=== PATIENT | female | born 1940 | race Caucasian/White ===

== ENCOUNTER 2016-11-04 10:15 | Emergency (ER) | payer MEDICARE ==
[2016-11-04 11:22] VITALS: BP 153/75
--- NOTE | 2016-11-04 12:11 | UC ---
anabel Ocasio Timothy, scribed for Morales Zamudio MD on 11/04/16 at 1129 . Ear Complaint HPI - HPI Summary HPI Summary: Lulu Slaughter is a 76 yo female presenting to [facility] with 8/10 pain in her left ear and behind her left ear for the past week. Pt was seen on 11/01/16 in [place] and was Dx with sinusitis and given neomycin, polymxin, hydrocortisone ear drops for use TID with no relief. She denies any drainage from her ear, or any rhinorrhea. She notes some sinus tenderness. Her MHx includes thyroid disease, goiter removal, rheumatic fever as a child, HLD, HTN, tubal ligation, shingles, tobacco use. - History of Current Complaint Chief Complaint: UCEar Stated Complaint: EAR PAIN Time Seen by Provider: 11/04/16 11:27 Hx Obtained From: Patient Onset/Duration: Sudden Onset, Lasting Days, Still Present Severity Initially: Moderate Severity Currently: Moderate Pain Intensity: 8 Pain Scale Used: 0-10 Numeric - Allergies/Home Medications Allergies/Adverse Reactions: Allergies Allergy/AdvReac Type Severity Reaction Status Date / Time Penicillins Allergy Severe swelling/it Verified 02/21/16 07:48 martín Home Medications: Home Medications Neomycin, Polymyxin B Hydrocortisone 3 drop LEFT EAR TID 11/04/16 [History Confirmed 11/04/16] PMH/Surg Hx/FS Hx/Imm Hx Endocrine History: Thyroid Disease Cardiovascular History: Hypertension - Surgical History Surgical History: Yes Surgery Procedure, Year, and Place: TUBAL. THYROID - Family History Known Family History: Positive: Hypertension Negative: Cardiac Disease, Diabetes - Social History Alcohol Use: None Substance Use Type: None Smoking Status (MU): Current Every Day Smoker Type: Cigarettes Amount Used/How Often: 1/2 ppd Have You Smoked in the Last Year: Yes When Did the Patient Quit Smoking/Using Tobacco: < 1/2 ppd Household Exposure Type: Cigarettes - Immunization History Most Recent Influenza Vaccination: 12/18 Review of Systems Constitutional: Negative Skin: Negative Eyes: Negative ENT: Ear Ache, Sinus Pain/Tenderness Respiratory: Negative Cardiovascular: Negative Gastrointestinal: Negative Genitourinary: Negative Motor: Negative Neurovascular: Negative Musculoskeletal: Negative Neurological: Negative Psychological: Negative All Other Systems Reviewed And Are Negative: Yes Physical Exam Triage Information Reviewed: Yes Vital Signs: Initial Vital Signs Temp 97.7 F 11/04/16 11:10 Pulse 62 11/04/16 11:10 Resp 18 11/04/16 11:10 BP 153/75 11/04/16 11:10 Pulse Ox 97 11/04/16 11:10 Vital Signs Reviewed: Yes - Additional Comments The patient is well-nourished in no acute distress and in no acute pain. The skin is warm and dry and skin color reflects adequate perfusion. HEENT: The head is normocephalic and atraumatic. The pupils are equal and reactive. The conjunctivae are clear and without drainage. Nares are patent and without drainage. No rhinorrhea, no postnasal drip. Mouth reveals moist mucous membranes and the throat is without erythema and exudate. The external ears are intact. The ear canals are patent and without drainage. The tympanic membranes are intact. The right ear has no mastoid tenderness. The left ear has tragal tenderness and mastoid tenderness with palpation. The left TM is dull with mild effusion. There is some left maxillary sinus tenderness. Neck is supple with full range of motion and non-tender. There are no carotid bruits. There is no neck vein distension. Respiratory: Chest is non-tender. Lungs are clear to auscultation and breath sounds are symmetrical and equal. Cardiovascular: Heart is regular rate and rhythm. There is no murmur or rub auscultated. There is no peripheral edema and pulses are symmetrical and equal. Abdomen: The abdomen is soft and non-tender. There are normal bowel sounds heard in all four quadrants and there is no organomegaly palpated. Musculoskeletal: There is no back pain noted. Extremities are non-tender with full range of motion. There is good capillary refill. There is no peripheral edema or calf tenderness elicited. Neurological: Patient is alert and oriented to person, place and time. The patient has symmetrical motor strength in all four extremities. Cranial nerves are grossly intact. Deep tendon reflexes are symmetrical and equal in all four extremities. Psychiatric: The patient has an appropriate affect and does not exhibit any anxiety or depression. Ear Complaint Course/Dx - Course Course Of Treatment: Lulu Slaughter is a 76 yo female presenting to [facility] with 8/ 10 pain in her left ear and behind her left ear for the past week. Pt medication list reviewed this visit. After clinical examination, she will be discharged home with otitis media and mastoiditis, with appropriate instructions and follow up. - Differential Dx/Diagnosis Differential Diagnosis/HQI/PQRI: Otitis Externa, Otitis Media, Other - sinusitis , mastioditis Provider Diagnoses: otitis media, mastoiditis Discharge - Discharge Plan Condition: Stable Disposition: HOME Prescriptions: Levofloxacin TAB* [Levaquin TAB*] 750 mg PO DAILY #10 tab Patient Education Materials: Otitis Media (ED), Mastoiditis (ED) Referrals: Iraida Sun NP [Primary Care Provider] - 2 Days Fredis Muñoz MD [Medical Doctor] - 2 Days Additional Instructions: Please follow up with your primary care physician and the ENT Doctor provided ( Dr. Muñoz) regarding your visit to urgent care today. Return to urgent care or the emergency department with any new or recurring symptoms. The documentation as recorded by the anabel fritz Timothy accurately reflects the service I personally performed and the decisions made by , Morales Zamudio MD.
== END 2016-11-04 12:00 | disposition home or self-care (01) ==
LOC: UCEAST 10:15
DX: H66.92 Otitis media, unspecified, left ear (principal); H70.92 Unspecified mastoiditis, left ear; I10 Essential (primary) hypertension; E78.5 Hyperlipidemia, unspecified; B02.9 Zoster without complications; Z72.0 Tobacco use; E07.9 Disorder of thyroid, unspecified
CPT/HCPCS: 99212; G0463

== ENCOUNTER 2016-11-08 10:49 | Emergency (ER) | payer MEDICARE ==
--- NOTE | 2016-11-08 12:18 | ED ---
Throat Pain/Nasal Congestion - HPI Summary HPI Summary: Patient presents with left post auricular tenderness x2 weeks. She has been seen at twice and given abx levofloxacin which she has been on for 5 days without improvement. Slight redness over the area, which has dissipated, but now notes to severe tenderness. She is unable to touch the area. Denies visual disturbances, ROYAL, eye discharge, inner ear pain or other complaints. PMHx includes CKD. Denies other complaints at this time. Denies SOB, chest pain, sweats, chills, fever or aches. Denies tinnitis or hearing loss. - History of Current Complaint Chief Complaint: EDEarPain Time Seen by Provider: 11/08/16 11:14 Hx Obtained From: Patient Onset/Duration: Gradual Onset Severity: Severe Associated Signs And Symptoms: Positive: Negative - Epiglottits Risk Factors Epiglottis Risk Factors: Negative - Allergies/Home Medications Allergies/Adverse Reactions: Allergies Allergy/AdvReac Type Severity Reaction Status Date / Time Penicillins Allergy Severe swelling/it Verified 11/08/16 10:53 martín PMH/Surg Hx/FS Hx/Imm Hx Previously Healthy: No - see below Endocrine/Hematology History: Reports: Hx Thyroid Disease - Goiter remvoed in past Denies: Hx Diabetes Cardiovascular History: Reports: Hx Hypercholesterolemia, Hx Hypertension, Hx Rheumatic Fever - as a child Denies: Hx Congestive Heart Failure, Hx Peripheral Vascular Disease Respiratory History: Denies: Hx Asthma, Hx Chronic Obstructive Pulmonary Disease (COPD) GI History: Denies: Hx Ulcer, Other GI Disorders History: Denies: Hx Renal Disease, Other Problems/Disorders Musculoskeletal History: Denies: Hx Arthritis, Hx Osteoporosis Sensory History: Denies: Hx Cataracts, Hx Contacts or Glasses, Hx Glaucoma, Hx Hearing Aid Opthamlomology History: Denies: Hx Cataracts, Hx Contacts or Glasses, Hx Glaucoma Neurological History: Denies: Hx Headaches, Hx Seizures, Hx Transient Ischemic Attacks (TIA) Psychiatric History: Denies: Hx Anxiety, Hx Depression - Cancer History Hx Chemotherapy: No Hx Radiation Therapy: No - Surgical History Surgery Procedure, Year, and Place: TUBAL. THYROID Hx Anesthesia Reactions: No - Immunization History Date of Tetanus Vaccine: Unk Date of Influenza Vaccine: Fall 2011 Hx Pertussis Vaccination: No Immunizations Up to Date: Unable to Obtain/Confirm Infectious Disease History: No Infectious Disease History: Reports: Hx Shingles - Many years ago Denies: Hx Clostridium Difficile, Hx Hepatitis, Hx Human Immunodeficiency Virus (HIV), Hx of Known/Suspected MRSA, Hx Tuberculosis, Hx Known/Suspected VRE , Hx Known/Suspected VRSA, History Other Infectious Disease, Traveled Outside the [place] in Last 30 Days - Family History Known Family History: Positive: None, Hypertension Negative: Cardiac Disease, Diabetes - Social History Occupation: Unemployed Lives: With Family Alcohol Use: None Hx Substance Use: No Substance Use Type: Reports: None Hx Tobacco Use: Yes Smoking Status (MU): Current Every Day Smoker Type: Cigarettes Amount Used/How Often: 1/2 ppd Have You Smoked in the Last Year: Yes Review of Systems Constitutional: Negative Eyes: Negative Positive: Ear Ache - post auricular pain on left side Cardiovascular: Negative Respiratory: Negative Positive: no symptoms reported, see HPI Musculoskeletal: Negative Neurological: Negative Psychological: Normal All Other Systems Reviewed And Are Negative: Yes Physical Exam Triage Information Reviewed: Yes Vital Signs On Initial Exam: Initial Vitals Temp Pulse Resp BP Pulse Ox 97.8 F 81 16 159/87 97 11/08/16 10:53 11/08/16 10:53 11/08/16 10:53 11/08/16 10:53 11/08/16 10:53 Vital Signs Reviewed: Yes Appearance: Positive: Well-Appearing, Well-Nourished Skin: Positive: Warm, Skin Color Reflects Adequate Perfusion Head/Face: Positive: Normal Head/Face Inspection Eyes: Positive: EOMI, TRISTAN ENT: Positive: Other - post auricular pain on left side Neck: Positive: Supple, Nontender Respiratory/Lung Sounds: Positive: Clear to Auscultation, Breath Sounds Present Cardiovascular: Positive: Normal, RRR, Pulses are Symmetrical in both Upper and Lower Extremities Musculoskeletal: Positive: Normal, Strength/ROM Intact Neurological: Positive: Normal, Sensory/Motor Intact Psychiatric: Positive: Normal AVPU Assessment: Alert Diagnostics - Vital Signs Vital Signs Temp Pulse Resp BP Pulse Ox 11/08/16 11:39 97.8 F 81 16 159/87 97 11/08/16 10:53 97.8 F 81 16 159/87 97 - Laboratory Lab Statement: Any lab studies that have been ordered have been reviewed, and results considered in the medical decision making process. EENT Course/Dx - Course Course Of Treatment: post auricular pain on left side. Called Dr. Clancy who recommends US for possible abscess and follow up with mammogram as outpatient. Tenderness to the left post auricular area without fever, sweats or chills. NO erythema or bulging. meningeal signs, cranial nerve deficits, focal neurologic findings, altered level of consciousness. No postauricular mass, neck mass, cranial nerve deficits, retro-orbital pain, hearing loss, tinnitus, vertigo, nystagmus. US shows no acute findings. Patient is given pain medications. She is to follow up for a mammogram this month and follow up with PCP. She does not currently have a PCP and is given a list. She agrees to follow up. - Differential Diagnoses Differential Diagnoses: Other - mastoiditis, abscess, ear infection, lymphnode pain - Diagnoses Provider Diagnoses: Pain of left mastoid Discharge - Discharge Plan Condition: Stable Disposition: HOME Prescriptions: HYDROcodone/ACETAMIN 5-325 MG* [[place] 5-325 TAB*] 1 tab PO Q4H PRN #18 tab MDD 6 PRN Reason: Pain Referrals: [facility] [Provider Group] [facility] [Provider Group] No Primary Care Phys,NOPCP [Primary Care Provider] - Additional Instructions: Follow up with PCP Call to make an appt for mammogram Continue antibiotics as prescribed Take ibuprofen 600mg three times daily Pain medication as needed
[2016-11-08] MEDS ORDERED: HYDROcodone/ACETAMIN 5-325 MG* 1 TAB PO ONE (12:38)
--- NOTE | 2016-11-08 13:34 | RAD ---
INDICATION: Left posterior auricular pain, abscess. COMPARISON: There are no prior studies available for comparison. TECHNIQUE: Multiple real-time images of the left posterior auricular region were obtained with images of the right side for comparison were obtained. FINDINGS: No mass, fluid collection or abscess is seen. IMPRESSION: NO EVIDENCE FOR ABSCESS.
[2016-11-08 14:40] VITALS: BP 143/79
== END 2016-11-08 14:39 | disposition home or self-care (01) ==
LOC: ED 10:49
DX: H92.02 Otalgia, left ear (principal)
CPT/HCPCS: 76536; 99282

== ENCOUNTER 2017-05-07 16:19 | Emergency (ER) | payer MEDICARE ==
--- NOTE | 2017-05-07 18:41 | UC ---
Shoulder Pain HPI - HPI Summary HPI Summary: 76 yo female fell and struck right shoulder on wood stove about a month ago ROM improving since injury but still hurts She has significant pain with lifting Hurts to bowl she is right handed - History of Current Complaint Chief Complaint: UCUpperExtremity Stated Complaint: SHOULDER INJURY Time Seen by Provider: 05/07/17 18:31 Hx Obtained From: Patient Onset/Duration: Sudden Onset Timing: Constant Severity Initially: Severe Severity Currently: Moderate Pain Intensity: 5 Pain Scale Used: 0-10 Numeric Character: Dull, Aching Aggravating Factor(s): Movement, Lifting Alleviating Factor(s): Rest Associated Signs And Symptoms: Positive: Negative - Allergies/Home Medications Allergies/Adverse Reactions: Allergies Allergy/AdvReac Type Severity Reaction Status Date / Time MS Penicillins [Penicillins] Allergy Severe swelling/it Verified 05/07/17 17:04 martín PMH/Surg Hx/FS Hx/Imm Hx Previously Healthy: Yes Endocrine History: Dyslipidemia - Surgical History Surgical History: Yes Surgery Procedure, Year, and Place: TUBAL. THYROID - Family History Known Family History: Positive: None, Hypertension Negative: Cardiac Disease, Diabetes - Social History Alcohol Use: None Substance Use Type: None Smoking Status (MU): Current Every Day Smoker Type: Cigarettes Amount Used/How Often: 1/2 ppd Have You Smoked in the Last Year: Yes When Did the Patient Quit Smoking/Using Tobacco: < 1/2 ppd Household Exposure Type: Cigarettes - Immunization History Most Recent Influenza Vaccination: 12/18 Review of Systems Constitutional: Negative Skin: Negative Eyes: Negative ENT: Negative Respiratory: Negative Cardiovascular: Negative Gastrointestinal: Negative Genitourinary: Negative Musculoskeletal: Arthralgia Neurological: Negative Psychological: Negative Is Patient Immunocompromised?: No All Other Systems Reviewed And Are Negative: Yes Physical Exam Triage Information Reviewed: Yes Appearance: Well-Appearing, No Pain Distress, Well-Nourished Vital Signs: Initial Vital Signs Temp 97.5 F 05/07/17 16:59 Pulse 74 05/07/17 16:59 Resp 16 05/07/17 16:59 BP 123/62 05/07/17 16:59 Pulse Ox 98 05/07/17 16:59 Vital Signs Reviewed: Yes Eyes: Positive: Conjunctiva Clear ENT Exam: Normal Dental Exam: Normal Neck exam: Normal Neck: Positive: Supple, Nontender Respiratory: Positive: Lungs clear, Normal breath sounds, No respiratory distress, No accessory muscle use Cardiovascular Exam: Normal Cardiovascular: Positive: RRR Abdominal Exam: Normal Musculoskeletal: Positive: ROM Intact, No Edema Neurological Exam: Normal Skin Exam: Normal Diagnostics - Radiology No standard instances Xray Interpretation: No Acute Changes Radiology Interpretation Completed By: Radiologist Shoulder Course/Dx - Differential Dx/Diagnosis Provider Diagnoses: right shoulder injury. ? partial rotator cuff tear Discharge - Discharge Plan Condition: Stable Disposition: HOME Patient Education Materials: Rotator Cuff Injury (ED) Referrals: Vishal David MD [Primary Care Provider] - As Soon As Possible Additional Instructions: PT consult you may have a partial tear of your rotator cuff Images Front/Back of Body, Lg (Chaves): 1 - tender 2 - tender
--- NOTE | 2017-05-07 18:59 | RAD ---
INDICATION: Right shoulder injury. TECHNIQUE: 4 views of the right shoulder were obtained. FINDINGS: The bones are in normal alignment. No fracture is seen. Joint spaces appear maintained. IMPRESSION: NO EVIDENCE OF FRACTURE.
[2017-05-07 19:14] VITALS: BP 132/79
== END 2017-05-07 19:28 | disposition home or self-care (01) ==
LOC: UCEAST 16:19
DX: S49.91XA Unspecified injury of right shoulder and upper arm, initial encounter (principal); W18.09XA Striking against other object with subsequent fall, initial encounter; Y93.9 Activity, unspecified; Y92.9 Unspecified place or not applicable; E78.5 Hyperlipidemia, unspecified; Z88.0 Allergy status to penicillin; F17.210 Nicotine dependence, cigarettes, uncomplicated
CPT/HCPCS: 99212; G0463

== ENCOUNTER 2018-07-15 17:46 | Emergency (ER) | payer MEDICARE ==
--- NOTE | 2018-07-15 18:27 | ED ---
Abdominal Pain/Female - HPI Summary HPI Summary: Pt is a 77 y/o female who presents to the ED c/o abdominal pain. This morning she began to have right-sided abdominal pain and nausea. She denies any fever, chills, vomiting, diarrhea, CP, dysuria, hematuria, or increased urinary frequency. Pain is rated an 8/10 in severity and is made worse with walking. She denies any hx of appendectomy. BP while in room: 181/104. - History of Current Complaint Chief Complaint: EDAbdPain Stated Complaint: RIGHT SIDE PAIN WHEN I WALK PER PT Time Seen by Provider: 07/15/18 18:16 Hx Obtained From: Patient Onset/Duration: Gradual Onset, Lasting Hours - This morning, Still Present Timing: Constant Severity Currently: Severe Pain Intensity: 8 Pain Scale Used: 0-10 Numeric Location: Other - right-sided Aggravating Factor(s): Movement - walking Associated Signs and Symptoms: Positive: Nausea. Negative: Fever, Urinary Symptoms, Vomiting, Diarrhea Allergies/Adverse Reactions: Allergies Allergy/AdvReac Type Severity Reaction Status Date / Time Penicillins Allergy Severe Hives Verified 07/15/18 17:55 PMH/Surg Hx/FS Hx/Imm Hx Endocrine/Hematology History: Denies: Hx Diabetes, Hx Thyroid Disease Cardiovascular History: Reports: Hx Hypercholesterolemia, Hx Hypertension - on meds, Hx Rheumatic Fever - as a child Denies: Hx Congestive Heart Failure, Hx Peripheral Vascular Disease Respiratory History: Denies: Hx Asthma, Hx Chronic Obstructive Pulmonary Disease (COPD) GI History: Denies: Hx Ulcer, Other GI Disorders History: Denies: Hx Renal Disease, Other Problems/Disorders Musculoskeletal History: Denies: Hx Arthritis, Hx Osteoporosis Sensory History: Denies: Hx Cataracts, Hx Contacts or Glasses, Hx Glaucoma, Hx Hearing Aid Opthamlomology History: Denies: Hx Cataracts, Hx Contacts or Glasses, Hx Glaucoma Neurological History: Denies: Hx Headaches, Hx Seizures, Hx Transient Ischemic Attacks (TIA) Psychiatric History: Denies: Hx Anxiety, Hx Depression - Cancer History Hx Chemotherapy: No Hx Radiation Therapy: No - Surgical History Surgery Procedure, Year, and Place: TUBAL. THYROID Hx Anesthesia Reactions: No - Immunization History Date of Tetanus Vaccine: Unk Date of Influenza Vaccine: Fall 2011 Infectious Disease History: No Infectious Disease History: Reports: Hx Shingles - Many years ago Denies: Hx Clostridium Difficile, Hx Hepatitis, Hx Human Immunodeficiency Virus (HIV), Hx of Known/Suspected MRSA, Hx Tuberculosis, Hx Known/Suspected VRE , Hx Known/Suspected VRSA, History Other Infectious Disease, Traveled Outside the [place] in Last 30 Days - Family History Known Family History: Positive: Hypertension Negative: Cardiac Disease, Diabetes - Social History Alcohol Use: None Hx Substance Use: No Substance Use Type: Reports: None Hx Tobacco Use: Yes Smoking Status (MU): Current Every Day Smoker Type: Cigarettes Amount Used/How Often: 1/2 ppd Have You Smoked in the Last Year: Yes Review of Systems Negative: Fever, Chills Negative: Chest Pain Positive: Abdominal Pain, Nausea. Negative: Vomiting, Diarrhea Negative: dysuria, frequency, hematuria All Other Systems Reviewed And Are Negative: Yes Physical Exam - Summary Physical Exam Summary: GENERAL: Patient is a well-developed and nourished F who is lying comfortable in the stretcher. Patient is not in any acute respiratory distress. HEAD AND FACE: Normocephalic EYES: PERRLA, EOMI x 2. EARS: Hearing grossly intact. MOUTH: Oropharynx within normal limits. NECK: Supple, trachea is midline, no adenopathy, no JVD, no carotid bruit. CHEST: Symmetric, no tenderness at palpation LUNGS: Clear to auscultation bilaterally. No wheezing or crackles. CVS: Regular rate and rhythm, S1 and S2 present, no murmurs or gallops appreciated. ABDOMEN: Soft. Bowel sounds are normal. No abdominal abnormal pulsations. Tenderness to palpation of RLQ with mild guarding. EXTREMITIES: Full ROM in all major joints, no edema, no cyanosis or clubbing. NEURO: Alert and oriented x 3. No acute neurological deficits. Speech is normal and follows commands. SKIN: Dry and warm Triage Information Reviewed: Yes Vital Signs On Initial Exam: Initial Vitals Temp Pulse Resp BP Pulse Ox 97.7 F 71 18 180/82 97 07/15/18 17:50 07/15/18 17:50 07/15/18 17:50 07/15/18 17:50 07/15/18 17:50 Vital Signs Reviewed: Yes Diagnostics - Vital Signs Vital Signs Temp Pulse Resp BP Pulse Ox 07/15/18 18:20 68 23 181/104 96 07/15/18 18:18 80 94 04/10/19 17:50 97.7 F 71 18 180/82 97 - Laboratory Result Diagrams: 07/15/18 18:31 07/15/18 18:31 Lab Statement: Any lab studies that have been ordered have been reviewed, and results considered in the medical decision making process. - CT CT A/P CT Interpretation Completed By: Radiologist Summary of CT Findings: No evidence of acute intra-abdominal pathology. Stable duodenal lipoma. There is a 5 mm nodule noted in the right lower lobe. Recommend dedicated chest imaging for further evaluation. ED physician reviewed radiology report. Re-Evaluation - Re-Evaluation First Eval Re-Evaluation Time: 21:45 Change: Improved Comment: Pt feels better. Abdominal Pain Fem Course/Dx - Course Course Of Treatment: Pt is a 77 y/o female who presents to the ED c/o abdominal pain and nausea. A physical exam revealed tenderness to palpation of RLQ with mild guarding. A CT A/P revealed No evidence of acute intra-abdominal pathology. Stable duodenal lipoma. There is a 5 mm nodule noted in the right lower lobe. Recommend dedicated chest imaging for further evaluation. Pt will be discharged with a final dx of abdominal pain. I discussed results with patient and she reports feeling better. She is hemodynamically stable and safe for discharge. Strict return precautions given and she will otherwise follow up with her PCP - Diagnoses Provider Diagnoses: Abdominal pain Discharge - Sign-Out/Discharge Documenting (check all that apply): Patient Departure - Discharge Patient Received Moderate/Deep Sedation with Procedure: No - Discharge Plan Condition: Improved Disposition: HOME Patient Education Materials: Abdominal Pain (ED) Referrals: Vishal David MD [Primary Care Provider] - (1-3 days) Additional Instructions: RETURN TO THE EMERGENCY DEPARTMENT FOR CHANGING OR WORSENING SYMPTOMS. - Billing Disposition and Condition Condition: IMPROVED Disposition: Home - Attestation Statements Document Initiated by Scribe: Yes Documenting Scribe: Kathleen Winters Provider For Whom Scribe is Documenting (Include Credential): Sri Dahl MD Scribe Attestation: Kathleen Ocasio, scrchestered for Sri Dahl MD on 07/16/18 at 1615. Scribe Documentation Reviewed: Yes Provider Attestation: The documentation as recorded by the Kathleen fritz accurately reflects the service I personally performed and the decisions made by me, Sri Dahl MD Status of Scribe Document: Viewed
[2018-07-15] MEDS ORDERED: Ondansetron INJ* 2 MG/ML VIAL IV ONE (18:28)
[2018-07-15] MEDS ORDERED: NS 0.9% 1000 ML** 1,000 ML IV ONE (18:28)
[2018-07-15] MEDS ORDERED: Morphine 4 MG/ML VIAL (1 ml) 4 MG/ML VIAL IV ONE (18:28)
[2018-07-15 18:41] LABS: ABS Basophils 0 10^3/ul (0-0.2); ABS Eosinophils 0.1 10^3/ul (0-0.6); ABS Lymphocytes 1.4 10^3/ul (1.0-4.8); ABS Monocytes 0.5 10^3/ul (0-0.8); ABS Neutrophils 3.3 10^3/ul (1.5-7.7); ABS Nucleated RBC 0 10^3/ul; Eosinophil % 2.6 %; Hematocrit 36 % (33-41); Hemoglobin 12.3 g/dL (12.0-16.0); Lymphocyte % 25.8 %; Mean Corpuscular HGB Conc 34 g/dL (31-36); Mean Corpuscular Hemoglobin 30 pg (27-31); Mean Corpuscular Volume 88 fL (80-97); Mean Platelet Volume 7.1 fL (7.4-10.4); Nucleated Red Blood Cells % 0; Platelet Count 225 10^3/uL (150-450); Red Blood Count 4.05 10^6 /uL (3.70-4.87); Red Cell Distribution Width 13 % (10.5-15); White Blood Count 5.5 10^3/uL (3.5-10.8)
[2018-07-15 18:59] LABS: Albumin 4.1 g/dL (3.2-5.2); Albumin/Globulin Ratio 1.3 (1-3); BUN/Creatinine Ratio 16.7 (8-20); C Reactive Protein 6.7 mg/L (<8.01); Calcium 9.5 mg/dL (8.6-10.3); EGFR African American 47.3 (>60); EGFR Non-African American 39.1 (>60); Globulin 3.2 g/dL (2-4); Potassium 3.9 mmol/L (3.5-5.0); Total Bilirubin 0.3 mg/dL (0.2-1.0); Total Protein 7.3 g/dL (6.4-8.9)
[2018-07-15 19:25] LABS: Urine Appearance Clear; Urine Bacteria 1+ (Absent); Urine Bilirubin Negative (Negative); Urine Blood 1+ (Negative); Urine Color Straw; Urine Glucose Negative (Negative); Urine Ketones Negative (Negative); Urine Nitrite Negative (Negative); Urine Protein Negative (Negative); Urine Red Blood Cell Trace(0-2/hpf) (Absent); Urine Specific Gravity 1.004 (1.010-1.030); Urine Urobilinogen Negative (Negative); Urine White Blood Cell Absent (Absent)
[2018-07-15] MEDS ORDERED: Iodixanol* (CONTRAST) 320 MG/ML 100 ML SDV IV ONE (20:46)
[2018-07-15 22:03] VITALS: BP 143/70
== END 2018-07-15 22:02 | disposition home or self-care (01) ==
LOC: ED 17:46
DX: R10.9 Unspecified abdominal pain (principal); E78.00 Pure hypercholesterolemia, unspecified; I10 Essential (primary) hypertension; F17.210 Nicotine dependence, cigarettes, uncomplicated
CPT/HCPCS: 36415; 74177; 80053; 81003; 81015; 82150; 83605; 83690; 85025; 86140; 87086; 96361; 96374; 96375; 99283; J2270; J2405; Q9967

== ENCOUNTER 2019-05-25 07:47 | Emergency (ER) | payer MEDICARE ==
[2019-05-25 08:55] LABS: Influenza A Molecular Negative (Negative); Influenza B Molecular Negative (Negative)
[2019-05-25] MEDS ORDERED: Albuterol 2.5 MG/3 ML NEB.SOL* (0.083%) INH ONE (09:18)
--- NOTE | 2019-05-25 09:56 | UC ---
Respiratory Complaint HPI - HPI Summary HPI Summary: 1 WEEK OF FLULIKE SYMPTOMS INCLUDING COUGH, NASAL CONGESTION, NAUSEA/VOMITING, HEADACHE, FEVER AND CHILLS. STATES HER SYMPTOMS OF ACTUALLY IMPROVED OVER THE PAST FEW DAYS. FEVER SEEMS GONE, NO DIARRHEA FOR DAYS AND SIGNIFICANT IMPROVEMENT IN NAUSEA BUT THE NASAL CONGESTION IS CONTINUING TO BE BOTHERSOME. SHE DENIES SHORTNESS OF BREATH, WHEEZE. QUIT SMOKING ONE MONTH AGO AFTER MANY DECADES OF BEING A HEAVY SMOKER. DOES NOT HAVE AN INHALER AT HOME. - History of Current Complaint Chief Complaint: UCGeneralIllness Stated Complaint: COUGH DIARRHEA NAUSEA Time Seen by Provider: 05/25/19 08:13 Hx Obtained From: Patient Onset/Duration: Gradual Onset, Lasting Days, Still Present Timing: Constant Severity Initially: Moderate Severity Currently: Moderate Pain Intensity: 4 Pain Scale Used: 0-10 Numeric Character: Cough: Nonproductive Aggravating Factors: Nothing Alleviating Factors: Nothing Associated Signs And Symptoms: Positive: Fever, Chills, URI, Nasal Congestion, Sinus Discomfort. Negative: Dyspnea, Wheezing - Allergies/Home Medications Allergies/Adverse Reactions: Allergies Allergy/AdvReac Type Severity Reaction Status Date / Time Penicillins Allergy Severe Hives Verified 07/15/18 17:55 ct contrast iodine Allergy Itching Uncoded 02/16/19 09:52 PMH/Surg Hx/FS Hx/Imm Hx Cardiovascular History: Hypertension GI/ History: Gastroesophageal Reflux - Surgical History Surgical History: Yes Surgery Procedure, Year, and Place: TUBAL. THYROID - Family History Known Family History: Positive: Hypertension Negative: Cardiac Disease, Diabetes - Social History Alcohol Use: None Substance Use Type: None Smoking Status (MU): Former Smoker Type: Cigarettes Amount Used/How Often: 1/2 ppd Have You Smoked in the Last Year: Yes When Did the Patient Quit Smoking/Using Tobacco: < 1/2 ppd Household Exposure Type: Cigarettes - Immunization History Most Recent Influenza Vaccination: 12/18 Review of Systems All Other Systems Reviewed And Are Negative: Yes Constitutional: Positive: Fever, Fatigue ENT: Positive: Nasal Discharge, Sinus Congestion Respiratory: Positive: Cough Cardiovascular: Positive: Negative Gastrointestinal: Positive: Abdominal Pain, Vomiting, Diarrhea, Nausea Genitourinary: Positive: Negative Neurological/Mental Status: Positive: Headache Physical Exam Triage Information Reviewed: Yes Appearance: No Pain Distress, Well-Nourished Vital Signs: Initial Vital Signs Temp 98.2 F 05/25/19 08:00 Pulse 82 05/25/19 08:00 Resp 18 05/25/19 08:00 BP 144/69 05/25/19 08:00 Pulse Ox 98 05/25/19 08:00 Laboratory Tests 05/25/19 08:43 Influenza A (Rapid) Negative Influenza B (Rapid) Negative Vital Signs Reviewed: Yes Eyes: Positive: Conjunctiva Clear ENT: Positive: Hearing grossly normal, Pharynx normal, TMs normal Neck: Positive: Supple, Nontender, No Lymphadenopathy Respiratory: Positive: Lungs clear, No accessory muscle use, Decreased breath sounds, Other: - EXHALING THROUGH PURSED LIPS Cardiovascular Exam: Normal Abdomen Description: Positive: Soft, Other: - MILDLY TENDER DIFFUSELY. NO REBOUND OR RIGIDITY. Negative: CVA Tenderness (R), CVA Tenderness (L), Guarding Bowel Sounds: Positive: Present Musculoskeletal: Positive: No Edema Neurological: Positive: Alert Psychological: Positive: Age Appropriate Behavior Skin: Negative: Rashes Diagnostics - Radiology CXR Radiology Interpretation Completed By: Radiologist Summary of Radiographic Findings: 1. No acute cardiac pulmonary process by radiograph. 2. Known pulmonary nodules better characterized by comparison imaging. Re-Evaluation - Re-Evaluation First Eval Re-Evaluation Time: 09:50 - BREATHING BETTER AFTER ALBUTEROL NEB Change: Improved Respiratory Course/Dx - Course Course Of Treatment: FLU SWAB NEGATIVE. SUSPECT PATIENT HAS A VIRAL SYNDROME/FLULIKE ILLNESS AND HAS TRIGGERED A COPD EXACERBATION. PATIENT SEEMED TO BE BREATHING EASIER AFTER ALBUTEROL NEBULIZER HERE. STATES THE THING THAT IS MOST BOTHERSOME TO HER IS HER NASAL CONGESTION. REPORTS IMPROVEMENT IN HER GI SYMPTOMS OVER THE LAST FEW DAYS. WILL GIVE ZOFRAN FOR NAUSEA AND PREDNISONE/ALBUTEROL TO HELP WITH AIRWAY INFLAMMATION. DISCUSSED ANTIBIOTIC FOR SINUSITIS HOWEVER GIVEN PATIENT'S GI DISTRESS WOULD DEFER THIS FOR NOW ESPECIALLY IN LIGHT OF HER IMPROVING SYMPTOMS. F/U PCP THIS WEEK. ADVISED TO GO TO THE ER WITHOUT FAIL IF HER SYMPTOMS WORSEN. - Differential Dx/Diagnosis Provider Diagnosis: Flu-like symptoms, COPD exacerbation Discharge ED - Sign-Out/Discharge Documenting (check all that apply): Patient Departure All imaging exams completed and their final reports reviewed: Yes - Discharge Plan Condition: Stable Disposition: HOME Prescriptions: Albuterol 2.5MG/3ML (0.083%)* [Ventolin 2.5 MG/3 ML NEB.CHASIDY*] 2.5 mg INH Q4H PRN #1 box PRN Reason: Wheezing Albuterol HFA INHALER* [Ventolin HFA Inhaler*] 2 puff INH Q4H PRN #1 mdi PRN Reason: Shortness Of Breath Nebulizer [Mini Plus Nebulizer] 1 each MC Q4H PRN #1 each PRN Reason: Shortness Of Breath Ondansetron ODT TAB* [Zofran Odt TAB*] 4 mg PO Q6H PRN #20 tab.odt PRN Reason: Nausea/Vomiting predniSONE 20 mg TAB [Deltasone 20 MG TAB*] 40 mg PO DAILY #10 tab Patient Education Materials: COPD (Chronic Obstructive Pulmonary Disease) (ED) , Viral Syndrome (ED) Referrals: Vishal David MD [Primary Care Provider] - 1 Week Additional Instructions: FLU SWAB NEGATIVE. I SUSPECT YOU ARE SUFFERING FROM A VIRAL RESPIRATORY ILLNESS /FLU LIKE SYNDROME THAT HAS TRIGGERED YOUR PROBABLE UNDERLYING COPD. YOU WERE BREATHING EASIER AFTER AN ALBUTEROL NEBULIZER TREATMENT. WILL SEND A PRESCRIPTION FOR A NEBULIZER AND ALBUTEROL NEBS TO YOUR PHARMACY. ALBUTEROL INHALER ALSO PRESCRIBED FOR PORTABILITY. SHORT BURST OF PREDNISONE WILL HELP WITH AIRWAY INFLAMMATION. ZOFRAN NEEDED FOR ANY RESIDUAL NAUSEA. DUE TO YOUR GI DISTRESS AND LACK OF A CLEAR BACTERIAL ETIOLOGY WOULD NOT RECOMMEND ANTIBIOTICS AT THIS TIME. CHEST X-RAY TODAY UNREMARKABLE. FOLLOW-UP WITH YOUR PCP THIS WEEK. USE OTC AFRIN FOR NASAL CONGESTION IF NEEDED. 2 SPRAYS IN EACH NOSTRIL TWICE DAILY NEEDED. DO NOT USE FOR MORE THAN 3-4 DAYS IN A ROW TO PREVENT DEVELOPING REBOUND CONGESTION. IF YOU ONLY USE IT ONCE DAILY YOU CAN EXTEND TO ABOUT 5 DAYS. GO TO THE ER WITHOUT FAIL IF YOU DEVELOP WORSENING SHORTNESS OF BREATH, CHEST PAIN, FEVER, PERSISTENT NAUSEA OR ANY OTHER CONCERNING SYMPTOMS. - Billing Disposition and Condition Condition: STABLE Disposition: Home
[2019-05-25] MEDS ORDERED: Ondansetron ODT TAB* 4 MG PO ONE (10:26)
[2019-05-25 10:46] VITALS: BP 140/69
== END 2019-05-25 10:47 | disposition home or self-care (01) ==
LOC: UCEAST 07:47
DX: J44.1 Chronic obstructive pulmonary disease with (acute) exacerbation (principal); R09.81 Nasal congestion; R11.2 Nausea with vomiting, unspecified; R51 Headache; R10.9 Unspecified abdominal pain; R19.7 Diarrhea, unspecified; I10 Essential (primary) hypertension; Z88.0 Allergy status to penicillin; Z91.041 Radiographic dye allergy status; Z87.891 Personal history of nicotine dependence
CPT/HCPCS: 71046; 99212; A9270-GY; G0463

== ENCOUNTER 2023-03-11 12:33 | Inpatient (IN) ==
[2023-03-11 13:56] LABS: ABS Eosinophils 0.2 10^3/uL (0.0-0.5); ABS Lymphocytes 1.5 10^3/uL (1.0-4.8); ABS Monocytes 0.6 10^3/uL (0.0-0.9); ABS Neutrophils 2.7 10^3/uL (1.5-7.6); ABS Nucleated RBC 0.01 10^3/ul; Eosinophil % 3.5 %; Hematocrit 37.8 % (35-45); Hemoglobin 12.8 g/dL (11.5-14.3); Lymphocyte % 29.8 %; Mean Corpuscular Hemoglobin 30.3 pg (27-33); Mean Corpuscular Volume 89.2 fL (80-97); Mean Platelet Volume 7.4 fL (7.5-11.2); Nucleated Red Blood Cells % 0.2 %/100WBC (0.0-0.8); Platelet Count 210 10^3/uL (150-450); Red Blood Count 4.23 10^6/uL (3.63-4.92); Red Cell Distribution Width 13.9 % (12-17); White Blood Count 5.1 10^3/uL (3.8-11.8)
[2023-03-11 14:03] LABS: INR 1.05 (0.83-1.13)
[2023-03-11 14:16] LABS: Albumin 3.7 g/dL (3.2-5.2); Albumin/Globulin Ratio 1.2 (1-3); Calcium 9.4 mg/dL (8.6-10.3); Creatinine, Serum 1.25 mg/dL (0.51-0.95); Potassium 3.8 mmol/L (3.5-5.0); Total Bilirubin 0.4 mg/dL (0.2-1.0); Total Protein 6.7 g/dL (6.4-8.9); eGFR CKD-EPI 43.3 (>60)
[2023-03-11] MEDS ORDERED: Iodixanol (CONTRAST) 320 MG/ML 100 ML SDV IV ONE ×2 (15:13→16:58)
[2023-03-11 15:40] LABS: High Sensitivity Troponin 1 Hr 16 pg/mL (<15)
[2023-03-11 16:56] LABS: HDL Cholesterol 38.5 mg/dL
[2023-03-11] MEDS ORDERED: hydrALAZINE 20 mg/ml 1 ML Vial IV IV SLOW PU ONE (18:33)
[2023-03-11] MEDS ORDERED: hydrALAZINE 20 mg/ml 1 ML Vial IV IV SLOW PU PRN (22:16)
[2023-03-12 06:26] LABS: ABS Lymphocytes 0.8 10^3/uL (1.0-4.8); ABS Monocytes 0.4 10^3/uL (0.0-0.9); ABS Neutrophils 7.4 10^3/uL (1.5-7.6); Eosinophil % 0.4 %; Hematocrit 38.5 % (35-45); Hemoglobin 13.3 g/dL (11.5-14.3); Lymphocyte % 9.5 %; Mean Corpuscular Hemoglobin 30.3 pg (27-33); Mean Corpuscular Hgb Conc 34.5 g/dL (31-36); Mean Platelet Volume 7.4 fL (7.5-11.2); Platelet Count 200 10^3/uL (150-450); Red Blood Count 4.38 10^6/uL (3.63-4.92); Red Cell Distribution Width 14.1 % (12-17); White Blood Count 8.7 10^3/uL (3.8-11.8)
[2023-03-12 06:54] LABS: Calcium 9.1 mg/dL (8.6-10.3); Creatinine, Serum 1.27 mg/dL (0.51-0.95); Magnesium 1.8 mg/dL (1.9-2.7); Potassium 3.5 mmol/L (3.5-5.0); eGFR CKD-EPI 42.5 (>60)
[2023-03-12 18:26] VITALS: BP 136/94
[2023-03-13] MEDS ORDERED: Iodixanol 320 (CONTRAST) 100 ML SDV IV ONE (07:46)
== END 2023-03-12 18:26 | disposition home or self-care (01) | DRG 125 ==
LOC: ED 12:33 → SUATTDRO 19:39 → EDHOLD 19:39
PROVIDERS: ADMIT Internal Medicine; ATTEND Internal Medicine